=== PATIENT | male | born 1985 | race Caucasian/White ===

== ENCOUNTER 2021-07-08 18:05 | Emergency (ER) | payer SELFPAY ==
[~2021-07-08] VITALS: Ht 185.4 cm; Wt 63.0 kg
[2021-07-08 18:13] VITALS: BP 150/83
[2021-07-08] MEDS ORDERED: TETRACAINE 0.5% OPHTH SOLUTION 4ML BOTTLE. OU ONE (18:30)
[2021-07-08] MEDS ORDERED: FLUORESCEIN OPHTH TEST STRIP. OU ONE (18:30)
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
--- NOTE | 2021-07-08 20:20 | RAD ---
EXAMINATION: XR RIBS AND CHEST 4+VIEWS CLINICAL HISTORY: Shortness of breath EXAM DATE/TIME: 07/08/2021 6:58 PM COMPARISON: None FINDINGS: Lines, Tubes, and Devices: None. Cardiomediastinal Silhouette: Within normal limits. Lungs and Pleura: No evidence of focal airspace consolidation, pleural effusion, or pneumothorax. Bul lous of edematous changes in the right greater than left upper lobes. Bones and Soft Tissues: No evidence of acute rib fracture. IMPRESSION: No evidence of acute rib fracture or related sequelae including pneumothorax or pleural effusion. Electronically signed by: Jose Mendes DO (07/08/2021 8:18 PM) [facility]
== END 2021-07-08 20:52 ==
LOC: ER 18:05
DX: S80.211A Abrasion, right knee, initial encounter (principal); H10.212 Acute toxic conjunctivitis, left eye; F17.200 Nicotine dependence, unspecified, uncomplicated; X58.XXXA Exposure to other specified factors, initial encounter; Y93.89 Activity, other specified; R07.89 Other chest pain; Y92.89 Other specified places as the place of occurrence of the external cause; Y99.8 Other external cause status
CPT/HCPCS: 71111; 99283